=== PATIENT | female | born 1980 | race Caucasian/White ===

== ENCOUNTER 2016-06-17 08:35 | Inpatient (IN) | payer OTHER ==
[~2016-06-17] VITALS: Ht 152.4 cm; Wt 69.0 kg
[2016-06-17 09:22] VITALS: BP 127/83
[2016-06-17] MEDS ORDERED: RINGERS SOLUTION,LACTATED 1,000 ML IV ONE (09:45)
[2016-06-17] MEDS ORDERED: NIFEdipine 10 MG CAPSULE PO ONE (09:45)
[2016-06-17] MEDS ORDERED: CITRIC ACID/SODIUM CITRATE 30 ML SOLUTION UDCUP PO ONE (11:30)
[2016-06-17] MEDS ORDERED: METOCLOPRAMIDE HCL 5 MG/ML 2 ML VIAL IVP ONE (11:30)
[2016-06-17] MEDS: RINGERS SOLUTION,LACTATED 1,000 ML IV SCH ×3 (12:00→17:20)
[2016-06-17] MEDS ORDERED: FentaNYL CITRATE-PF 100 MCG/2 ML VIAL ONE ×2 (12:01→14:23)
[2016-06-17] MEDS ORDERED: MIDAZOLAM HCL 2 MG/2 ML VIAL ONE (12:01)
[2016-06-17] MEDS ORDERED: MORPHINE SULFATE/PF 0.5 MG/ML 10 ML AMP ONE ×2 (12:01→14:10)
[2016-06-17] MEDS ORDERED: GUM MASTIC/STORAX/MSAL/ALCOHOL LIQUID 0.67 ML VIAL TP ONE ×2 (12:02→12:03)
[2016-06-17 12:07] LABS: BASOPHILS # (AUTO) 0.04 K/uL (0.00-0.20); BASOPHILS % (AUTO) 0.4 % (0.0-2.0); EOSINOPHILS # (AUTO) 0.12 K/uL (0.00-0.70); EOSINOPHILS % (AUTO) 1.01 % (1.0-6.0); HEMATOCRIT 39.5 % (36-46); HEMOGLOBIN 13.5 g/dL (12.0-16.0); LYMPHOCYTES # (AUTO) 2.7 K/uL (1.0-4.8); LYMPHOCYTES % (AUTO) 22.8 % (22.0-44.0); MEAN CORPUSCULAR HEMOGLOBIN 29.9 pg (26.0-34.0); MEAN CORPUSCULAR HGB CONC 34.1 G/dL (31.0-37.0); MEAN CORPUSCULAR VOLUME 88 fL (80-100); MONOCYTES # (AUTO) 0.7 K/uL (0.1-1.0); NEUTROPHILS # (AUTO) 8.3 K/uL (1.8-7.7); NEUTROPHILS % (AUTO) 69.8 % (40.0-70.0); RED CELL DISTRIBUTION WIDTH 13.5 % (11.5-14.5)
[2016-06-17 12:10] LABS: RBC MORPHOLOGY COMMENT NORMAL RBC MORPH; WHITE BLOOD COUNT (AUTO) 12.1 K/uL (4.5-11.0)
[2016-06-17] MEDS ORDERED: ONDANSETRON HCL 4 MG/2 ML VIAL IVP PRN ×2 (13:15)
[2016-06-17] MEDS ORDERED: MORPHINE SULFATE 2 MG/ML SYRINGE IVP PRN (13:15)
[2016-06-17] MEDS ORDERED: DiphenhydrAMINE HCL 50 MG/ML VIAL IVP PRN ×2 (13:15)
[2016-06-17] MEDS ORDERED: OXYGEN THERAPY IH SCH ×2 (13:15)
[2016-06-17] MEDS ORDERED: MORPHINE SULFATE 4 MG/ML SYRINGE IVP PRN (13:15)
[2016-06-17] MEDS ORDERED: FentaNYL CITRATE-PF 100 MCG/2 ML VIAL IVP PRN (13:15)
[2016-06-17] MEDS ORDERED: MORPHINE SULFATE/PF 1 MG/ML 10 ML AMP ONE ×2 (14:09→14:20)
[2016-06-17] MEDS: FentaNYL CITRATE-PF 100 MCG/2 ML VIAL IVP PRN ×2 (14:24→14:33)
[2016-06-17] MEDS ORDERED: KETOROLAC TROMETHAMINE 60 MG/2 ML VIAL IM ONE (14:42)
[2016-06-17] MEDS ORDERED: OXYTOCIN 10 UNITS/ML VIAL IM ONE (14:42)
[2016-06-17] MEDS ORDERED: DEXAMETHASONE SOD PHOS 4 MG/ML VIAL IVP ONE (14:42)
[2016-06-17] MEDS ORDERED: PHENYLEPHRINE HCL 10 MG/ML VIAL IVP ONE (14:42)
[2016-06-17] MEDS ORDERED: EPHEDrine SULFATE 50 MG/ML VIAL IM ONE (14:42)
[2016-06-17] MEDS ORDERED: ONDANSETRON HCL 4 MG/2 ML VIAL IVP ONE (14:42)
[2016-06-17] MEDS: NALBUPHINE HCL 10 MG/ML VIAL IVP SCH ×2 (16:03→22:03)
[2016-06-17] MEDS ORDERED: OXYTOCIN 30 UNITS/LACT RINGERS 500 ML IV ONE (17:09)
[2016-06-17] MEDS ORDERED: OxyCODONE HCL/ACETAMINOPHEN 5-325 MG TABLET PO PRN (17:15)
[2016-06-17] MEDS ORDERED: LANOLIN 7 GM OINTMENT TP PRN (17:15)
[2016-06-17] MEDS: KETOROLAC TROMETHAMINE 30 MG/ML VIAL IVP SCH (19:01)
[2016-06-18] MEDS: RINGERS SOLUTION,LACTATED 1,000 ML IV SCH ×2 (00:39→08:36)
[2016-06-18] MEDS: KETOROLAC TROMETHAMINE 30 MG/ML VIAL IVP SCH ×2 (00:43→06:41)
[2016-06-18] MEDS: NALBUPHINE HCL 10 MG/ML VIAL IVP SCH (03:53)
[2016-06-18 06:51] LABS: BASOPHILS # (AUTO) 0.04 K/uL (0.00-0.20); BASOPHILS % (AUTO) 0.3 % (0.0-2.0); EOSINOPHILS # (AUTO) 0.03 K/uL (0.00-0.70); EOSINOPHILS % (AUTO) 0.22 % (1.0-6.0); HEMATOCRIT 26.8 % (36-46); HEMOGLOBIN 9.1 g/dL (12.0-16.0); LYMPHOCYTES # (AUTO) 2.8 K/uL (1.0-4.8); LYMPHOCYTES % (AUTO) 20.2 % (22.0-44.0); MEAN CORPUSCULAR HEMOGLOBIN 30.4 pg (26.0-34.0); MEAN CORPUSCULAR VOLUME 89 fL (80-100); MONOCYTES # (AUTO) 1.2 K/uL (0.1-1.0); MONOCYTES % (AUTO) 8.6 % (2.0-9.0); NEUTROPHILS # (AUTO) 9.8 K/uL (1.8-7.7); NEUTROPHILS % (AUTO) 70.7 % (40.0-70.0); RED CELL DISTRIBUTION WIDTH 13.1 % (11.5-14.5); WHITE BLOOD COUNT (AUTO) 13.8 K/uL (4.5-11.0)
[2016-06-18] MEDS: MAGNESIUM HYDROXIDE SUSPENSION 30 ML UDCUP PO SCH ×2 (07:54→21:13)
[2016-06-18] MEDS: IBUPROFEN 800 MG TABLET PO SCH ×2 (11:15→18:12)
[2016-06-18] MEDS: OxyCODONE HCL/ACETAMINOPHEN 5-325 MG TABLET PO PRN (16:31)
[2016-06-18] MEDS ORDERED: IBUPROFEN 800 MG TABLET PO PRN (17:15)
[2016-06-19] MEDS: IBUPROFEN 800 MG TABLET PO SCH ×3 (00:06→13:00)
[2016-06-19] MEDS: MAGNESIUM HYDROXIDE SUSPENSION 30 ML UDCUP PO SCH (08:20)
[2016-06-19] MEDS: OxyCODONE HCL/ACETAMINOPHEN 5-325 MG TABLET PO PRN (09:40)
[2016-06-19] MEDS ORDERED: IBUP-2070 PO (14:14)
[2016-06-19] MEDS ORDERED: DSS100 PO (14:16)
[2016-06-19] MEDS ORDERED: FERR-89 PO (14:16)
== END 2016-06-19 14:55 | disposition home or self-care (01) | DRG 766 ==
LOC: 4S 08:35 → OBSVTOIN 08:35 → 4S 13:40
PROVIDERS: ADMIT Obstetrics & Gynecology; ATTEND Obstetrics & Gynecology
PROC: 10D00Z1 Extraction of Products of Conception, Low, Open Approach (ICD-10-PCS; principal; 2016-06-17)
DX: O69.81X0 Labor and delivery complicated by cord around neck, without compression, not applicable or unspecified (principal); O34.211 Maternal care for low transverse scar from previous cesarean delivery; N85.8 Other specified noninflammatory disorders of uterus; Z3A.38 38 weeks gestation of pregnancy; Z37.0 Single live birth
CPT/HCPCS: 59025; 86850; 86900; 86901; 87081; 96360; J0690; J1100; J1885; J2250; J2274; J2300; J2370; J2405; J2590; J2765; J3010; J3490; J7120